=== PATIENT | female | born 1980 | race Caucasian/White ===

== ENCOUNTER 2016-08-24 10:19 | Emergency (ER) | payer OTHER, MEDICAID ==
[~2016-08-24] VITALS: Ht 154.9 cm; Wt 100.0 kg
[~2016-08-24 10:19] MED LIST: AMOX875 PO; CEPALOZ SUCK-ON
[2016-08-24 10:21] VITALS: BP 143/102; PULSE 88; RESP 18; TEMP 98.2; O2SAT 100
--- NOTE | 2016-08-24 10:29 | PD ---
HPI Chief Complaint: Back/ Neck Pain or Injury Time Seen by Provider: 10:29 Travel History International Travel<30 days: No Contact w/Intl Traveler<30days: No Traveled to known affect area: No History of Present Illness HPI 36-year-old female presents the emergency Department with severe worsening of left lower back pain with sciatica symptoms in the left leg since trip and fall this morning. Patient has history of low back pain without sciatica for approximately a month and a half for which she has been seeing a chiropractor and primary care physician. Patient states she is receiving several Toradol injections as well as Robaxin and Naprosyn. Patient states she was taking her dog out this morning when the dog jumped, jerking her sideways causing her to fall onto 3 steps. She now has severe low back pain with radiation into the left leg to the ankle. She denies numbness, tingling, or weakness. She has no a bladder issues currently. She states the pain is a 9 out of 10, and worse with sitting or cough. She has no known drug allergies. [facility] Past Medical History ?: Not LMP: 07/27/2016 Social History Alcohol Use: No Tobacco Use: No Substance Use: No Allergies-Medications (Allergen,Severity, Reaction): Coded Allergies: No Known Allergies (Unverified , 10/01/15) Reported Meds & Prescriptions Reported Meds & Active Scripts Active Reported Naproxen 500 Mg Tab 500 Mg PO BID Robaxin (Methocarbamol) 750 Mg Tab 1,500 Mg PO TID Review of Systems Except as stated in HPI: all other systems reviewed are Neg General / Constitutional: No: Fever Eyes: No: Visual changes HENT: No: Headaches Cardiovascular: No: Chest Pain or Discomfort Respiratory: No: Shortness of Breath Gastrointestinal: No: Abdominal Pain Genitourinary: No: Dysuria Musculoskeletal: Positive: Arthralgias (see history present illness.), Limited ROM, Pain Skin: No Rash Neurologic: No: Weakness Psychiatric: No: Depression Endocrine: No: Polydipsia Hematologic/Lymphatic: No: Easy Bruising Physical Exam Narrative GENERAL: Patient appears in moderate distress. SKIN: Warm and dry. Normal color. Normal turgor. No rash. HEAD: Atraumatic. Normocephalic. EYES: Pupils equal and round. No scleral icterus. No injection or drainage. ENT: No nasal bleeding or discharge. Mucous membranes pink and moist. NECK: Trachea midline. Supple and nontender. CARDIOVASCULAR: Regular rate and rhythm. RESPIRATORY: No accessory muscle use. Clear to auscultation. Breath sounds equal bilaterally. MUSCULOSKELETAL: Extremities without clubbing, cyanosis, or edema. No obvious deformities. Patient is tenderness along the lower lumbar spine bilaterally, without specific bony tenderness or step-off. Patient has pain into the left sciatic notch with palpation. Positive straight leg raise pain on the left at 30. Patient has intact 2+ bilaterally patellar and Achilles tendon reflexes. Patient is able to dorsiflex and plantar flex the lower extremities without weakness. NEUROLOGICAL: Awake and alert. No obvious cranial nerve deficits. Motor grossly within normal limits. Five out of 5 muscle strength in the arms and legs. Normal speech. PSYCHIATRIC: Appropriate mood and affect; insight and judgment normal. Data Data Last Documented VS Vital Signs Date Time Temp Pulse Resp B/P Pulse Ox O2 Delivery O2 Flow Rate FiO2 08/24/16 10:21 98.2 88 18 143/102 100 Orders Ketorolac Inj (Toradol Inj) (08/24/16 10:45) Spine, Lumbar Comp W/Obliq (08/24/16 10:33) MDM Medical Decision Making Medical Screen Exam Complete: Yes Emergency Medical Condition: Yes Differential Diagnosis Slip and fall. Lumbar strain. Sciatica. Narrative Course Patient is in pain but medically stable at time of exam. X-rays of the lumbar spine are ordered. Patient is given Toradol 60 mg IM. X-ray show no acute process per radiologist. Patient will be treated with prednisone 60 mg by mouth now. She is also given prednisone 20 mg twice a day 7 days. Patient also given Norflex 100 mg twice a day #20. Patient also given tramadol 50 mg one every 6 hours when necessary pain #20. Patient should use ice and heat as discussed. Recommend frequent walking and limited lifting for the next week. Patient is to follow-up with her primary care physician as needed or return to emergency Department with worsening symptoms as discussed. Diagnosis Primary Impression: Sciatica of left side associated with disorder of lumbosacral spine Referrals: Primary Care Physician call for appointment Patient Instructions: General Instructions, Lower Back Exercises (ED), Prednisone (By mouth), Sciatica (ED) Additional Instructions: Patient is given Toradol 60 mg IM. X-ray show no acute process per radiologist. Patient will be treated with prednisone 60 mg by mouth now. She is also given prednisone 20 mg twice a day 7 days. Patient also given Norflex 100 mg twice a day #20. Patient also given tramadol 50 mg one every 6 hours when necessary pain #20. Patient should use ice and heat as discussed. Recommend frequent walking and limited lifting for the next week. Patient is to follow-up with her primary care physician as needed or return to emergency Department with worsening symptoms as discussed. Med/Other Pt SpecificInfo: Prescription(s) given Disposition: 01 DISCHARGE HOME Condition: Stable Jovanny Cm Aug 24, 2016 10:29
[2016-08-24] MEDS ORDERED: ROBA750T PO (10:41)
[2016-08-24] MEDS ORDERED: NAPR500T PO (10:41)
[2016-08-24] MEDS ORDERED: KETOROLAC TROMETHAMINE 60 MG/2 ML (IM) VIAL IM ONE (10:45)
[2016-08-24] MEDS ORDERED: ORPH100T99 PO (11:15)
[2016-08-24] MEDS ORDERED: TRAM50TA PO (11:15)
[2016-08-24] MEDS ORDERED: predniSONE 20 MG TAB PO ONE (11:15)
[2016-08-24] MEDS ORDERED: PRED20 PO (11:15)
[2016-08-24 11:21] VITALS: RESP 18
--- NOTE | 2016-08-24 11:36 | RADRPT ---
EXAM DATE/TIME: 08/24/2016 10:50 [facility] COMPARISON: No previous studies available for comparison. INDICATIONS : Pain in lower back after falling down stairs at 5am today MEDICAL HISTORY : None. SURGICAL HISTORY : None. ENCOUNTER: Initial ACUITY: 1 day PAIN SCORE: 10/10 LOCATION: Bilateral lumbar spine FINDINGS: There is disc space narrowing at L5-S1. There is no acute compression fraction, spondylolisthesis or spondylolysis. CONCLUSION: 1. Mild degenerative disc disease at L5-S1. 2. No acute compression fraction, spondylolisthesis or spondylolysis. Ted Saini MD on August 24, 2016 at 11:30 Board Certified Radiologist. This report was verified electronically.
== END 2016-08-24 12:02 | disposition home or self-care (01) ==
LOC: NEPK 10:19
DX: M54.42 Lumbago with sciatica, left side (principal)
CPT/HCPCS: 72110; 96372; 99284; J1885; J7512

== ENCOUNTER 2017-03-06 23:39 | Emergency (ER) | payer OTHER, MEDICAID ==
[~2017-03-06] VITALS: Ht 154.9 cm; Wt 99.6 kg
[~2017-03-06 23:39] MED LIST changes: -AMOX875 PO; -CEPALOZ SUCK-ON; +NAPR500T2 PO; +ORPH100T2 PO; +PRED20 PO; +ROBA750T PO; +TRAM50TA PO
[2017-03-06 23:42] VITALS: BP 138/82; PULSE 106; RESP 18; TEMP 98.2; O2SAT 96
[2017-03-06] MEDS ORDERED: TYLE325T PO (23:47)
--- NOTE | 2017-03-06 23:59 | PD ---
HPI Chief Complaint: Headache Time Seen by Provider: 23:50 Travel History International Travel<30 days: No Contact w/Intl Traveler<30days: No Traveled to known affect area: No History of Present Illness HPI 36-year-old female presents to the emergency department by private transportation the care of family for complaint of 4 days of a migraine headache. Patient states has history of migraines. Patient reports history of migraine and family members. Patient states she has typical migraine but more intense and longer in duration. Patient has been seen in the past the emergency department because headache has become more intense and longer duration. Typical associated symptoms for her light sensitivity noise sensitivity and movement sensitivity. Patient's had also nausea and vomiting. No report of hematemesis coffee-ground emesis and no report of melena or hematochezia. No report of abdominal pain. Patient denies fever and chills. Patient states she took tramadol at 4 PM. Patient states symptoms have persisted. Patient denies other concerns or complaints no report of injury or trauma. PFSH Past Medical History Narrative Medical Migraines tubal ligation no tobacco use nursing notes reviewed Tetanus Vaccination: Unknown Influenza Vaccination: No ?: Not LMP: TUBAL Social History Alcohol Use: No Tobacco Use: No Substance Use: No Allergies-Medications (Allergen,Severity, Reaction): Coded Allergies: No Known Allergies (Unverified Adverse Reaction, Unknown, 03/06/17) Reported Meds & Prescriptions Reported Meds & Active Scripts Active Zofran Odt (Ondansetron Odt) 4 Mg Tab 4 Mg SL Q6HR PRN Tramadol (Tramadol HCl) 50 Mg Tab 50 Mg PO Q6H PRN Reported Tylenol (Acetaminophen) 325 Mg Tab 650 Mg PO Q4H PRN Robaxin (Methocarbamol) 750 Mg Tab 1,500 Mg PO TID Review of Systems Except as stated in HPI: all other systems reviewed are Neg Physical Exam Narrative GENERAL: Well-developed well-nourished female in obvious discomfort with no respiratory distress GCS 15 SKIN: Warm and dry. HEAD: Atraumatic. Normocephalic. EYES: Pupils equal and round. No scleral icterus. No injection or drainage. ENT: No nasal bleeding or discharge. Mucous membranes pink and moist. NECK: Trachea midline. No JVD. CARDIOVASCULAR: Regular rate and rhythm. RESPIRATORY: No accessory muscle use. Clear to auscultation. Breath sounds equal bilaterally. GASTROINTESTINAL: Abdomen soft, non-tender, nondistended. Hepatic and splenic margins not palpable. MUSCULOSKELETAL: Extremities without clubbing, cyanosis, or edema. No obvious deformities. NEUROLOGICAL: Awake and alert. No obvious cranial nerve deficits. Motor grossly within normal limits. Five out of 5 muscle strength in the arms and legs. Normal speech. PSYCHIATRIC: Appropriate mood and affect; insight and judgment normal. Data Data Last Documented VS Vital Signs Date Time Temp Pulse Resp B/P (MAP) Pulse Ox O2 Delivery O2 Flow Rate FiO2 03/06/17 23:42 98.2 106 18 138/82 (100) 96 Orders Orders ^ Saline Lock (03/06/17 23:55) Sodium Chlor 0.9% 1000 Ml Inj (Ns 1000 M (03/07/17 00:00) Ondansetron Inj (Zofran Inj) (03/07/17 00:00) Ketorolac Inj (Toradol Inj) (03/07/17 00:00) Ed Urine Pregnancytest Poc (03/06/17 23:55) Prochlorperazine Inj (Compazine Inj) (03/07/17 01:15) Diphenhydramine Inj (Benadryl Inj) (03/07/17 01:15) Ct Brain W/O Iv Contrast(Rout) (03/07/17 ) [facility] Medical Decision Making Medical Screen Exam Complete: Yes Emergency Medical Condition: Yes Medical Record Reviewed: Yes Interpretation(s) Last Impressions Head CT 03/07/17 0000 Signed Impressions: Service Date/Time: Tuesday, March 07, 2017 01:14 - CONCLUSION: Unremarkable study. KIker Ferguson MD Vital Signs Date Time Temp Pulse Resp B/P (MAP) Pulse Ox O2 Delivery O2 Flow Rate FiO2 03/06/17 23:42 98.2 106 18 138/82 (100) 96 Differential Diagnosis Migraine headache cephalgia dehydration Narrative Course IV access obtained specimens collected and sent for resulting patient administered 1 L normal saline Toradol 30 mg IV and Zofran 4 mg IV Patient continues to have headache other nausea improved Patient administered Benadryl and Compazine At 1:55 AM patient is clinically improved and requests being discharged to home so she can go to sleep; CT brain noncontrast reveals no acute abnormality per reading radiologist Patient stable for outpatient management and follow-up with her primary care provider; patient is provided prescription for Zofran to take as needed Diagnosis Primary Impression: Migraine Referrals: Primary Care Physician call for appointment Patient Instructions: General Instructions Additional Instructions: Follow-up with your primary care provider Takes Zofran as prescribed as needed for nausea and/or vomiting Increase fluid hydration May take acetaminophen/Tylenol every 4 hours as needed for fever 100.4F or greater or for minor pain May take ibuprofen 800 mg as often as every 8 hours as needed for pain associated with inflammation or for fever 100.4F or greater Return to the emergency department for any concerns or change in condition Med/Other Pt SpecificInfo: Prescription(s) given Scripts Ondansetron Odt (Zofran Odt) 4 Mg Tab 4 MG SL Q6HR Y for Nausea/Vomiting, #10 TAB 0 Refills Prov: Jasmina Rangel MD 03/07/17 Disposition: 01 DISCHARGE HOME Condition: Stable Jasmina Rangel MD Mar 06, 2017 23:58
[2017-03-07] MEDS ORDERED: KETOROLAC TROMETHAMINE 30 MG/ML (IVP) VIAL IV PUSH ONE
[2017-03-07] MEDS ORDERED: SODIUM CHLOR 0.9% 1000 ML INJ 1,000 ML IV ONE
[2017-03-07] MEDS ORDERED: ONDANSETRON HCL 4 MG/2 ML VIAL IV PUSH ONE
[2017-03-07] MEDS ORDERED: PROCHLORPERAZINE INJ 10 MG/2 ML VIAL IV PUSH ONE (01:15)
[2017-03-07] MEDS ORDERED: diphenhydrAMINE HCL 50 MG/ML VIAL IV PUSH ONE (01:15)
--- NOTE | 2017-03-07 01:39 | RADRPT ---
EXAM DATE/TIME: 03/07/2017 01:14 [facility] COMPARISON: No previous studies available for comparison. INDICATIONS : Migraine symptoms for 4 days. Nausea and vomiting RADIATION DOSE: 60.00 CTDIvol (mGy) MEDICAL HISTORY : None SURGICAL HISTORY : Tubal ligation. ENCOUNTER: Initial ACUITY: 4 - 6 days PAIN SCALE: 10/10 LOCATION: cranial TECHNIQUE: Multiple contiguous axial images were obtained of the head. Using automated exposure control and adj ustment of the mA and/or kV according to patient size, radiation dose was kept as low as reasonably a chievable to obtain optimal diagnostic quality images. DICOM format image data is available electro nically for review and comparison. FINDINGS: There is no evidence for intracranial hemorrhage, mass effect, mass lesions, edema, or extra-axial fl uid collections. The visualized bony structures appear intact. The ventricles are normal size for t he patient's age. There are no signs of acute infarction for technique. CONCLUSION: Unremarkable study. Charles Ferguson MD on March 07, 2017 at 1:36 Board Certified Radiologist. This report was verified electronically.
[2017-03-07] MEDS ORDERED: ZOFR4TAB3 SL (01:56)
[2017-03-07 02:08] VITALS: BP 111/65
== END 2017-03-07 02:10 | disposition home or self-care (01) ==
LOC: PHED 23:39
DX: G43.909 Migraine, unspecified, not intractable, without status migrainosus (principal); R11.2 Nausea with vomiting, unspecified; Z79.899 Other long term (current) drug therapy
CPT/HCPCS: 70450; 84703; 96374; 96375; 99285; J0780; J1200; J1885; J2405; J7030